=== PATIENT | female | born 1960 | race Caucasian/White ===

== ENCOUNTER 2017-04-17 10:44 | Emergency (ER) | payer BC ==
--- NOTE | 2017-04-17 11:47 | RAD ---
HISTORY: Left wrist pain and injury COMPARISONS: None VIEWS: 3, Frontal, lateral, and oblique views of the left wrist FINDINGS: BONE DENSITY: Normal. BONES: There is a comminuted fracture of the distal radial metaphysis with articular extension. There is minimal dorsal inflation. There is a minimally displaced fracture of the styloid process of the ulna. JOINTS: There is no arthropathy. ALIGNMENT: There is no dislocation. SOFT TISSUES: Unremarkable. OTHER FINDINGS: None. IMPRESSION: 1. COMMINUTED, ANGULATED FRACTURE OF THE DISTAL RADIAL METAPHYSIS. 2. FRACTURE OF THE STYLOID PROCESS OF THE ULNA.
[2017-04-17] MEDS ORDERED: Ketorolac INJ* 60 MG/2 ML VIAL IM ONE (13:32)
--- NOTE | 2017-04-17 14:21 | ED ---
Upper Extremity Pain - HPI Summary HPI Summary: 57 female presents with complaints of left wrist pain and injury that occurred just [employer]. Patient states she was helping her daughter move into dorm room and fell off bad landing on left wrist/arm. Patient had immediate pain and deformity. Did not hit head, no LOC and no other complaints/injuries at this time. Has not taken any medications. No PMHX. Does have osteopenia. Denies numbness/tingling. - History of Current Complaint Chief Complaint: EDExtremityUpper Stated Complaint: WRIST INJURY Time Seen by Provider: 04/17/17 11:10 Hx Obtained From: Patient Mechanism Of Injury: Fall From Height Of: - 4 feet ([employer] bed hieght) Onset/Duration: Started Hours Ago, Traumatic, Still Present Timing: Constant Severity Initially: Moderate Severity Currently: Moderate Pain Location: Wrist - left Character: Sharp, Aching Aggravating Factor(s): Movement Alleviating Factor(s): Rest Associated Signs & Symptoms: Positive: Swelling, Other - obvious deformity of left wrist Related History: Dominant Hand Right - Allergies/Home Medications Allergies/Adverse Reactions: Allergies Allergy/AdvReac Type Severity Reaction Status Date / Time No Known Allergies Allergy Verified 04/17/17 10:46 PMH/Surg Hx/FS Hx/Imm Hx Endocrine/Hematology History: Denies: Hx Diabetes Cardiovascular History: Denies: Hx Hypertension Respiratory History: Denies: Hx Asthma - Surgical History Surgery Procedure, Year, and Place: none - Immunization History Immunizations Up to Date: Yes Infectious Disease History: No Infectious Disease History: Denies: Traveled Outside the [place] in Last 30 Days - Family History Known Family History: Positive: None - Social History Alcohol Use: None Substance Use Type: Reports: None Smoking Status (MU): Never Smoked Tobacco Review of Systems Constitutional: Negative Cardiovascular: Negative Respiratory: Negative Gastrointestinal: Negative Positive: Arthralgia, Myalgia, Decreased ROM, Edema - left wrist Skin: Negative Neurological: Negative All Other Systems Reviewed And Are Negative: Yes Physical Exam Triage Information Reviewed: Yes Vital Signs On Initial Exam: Initial Vitals Temp Pulse Resp BP Pulse Ox 97.3 F 72 16 108/73 97 04/17/17 10:46 04/17/17 10:46 04/17/17 10:46 04/17/17 10:46 04/17/17 10:46 Vital Signs Reviewed: Yes Appearance: Positive: Well-Appearing, No Pain Distress, Well-Nourished Skin: Positive: Warm, Skin Color Reflects Adequate Perfusion, Dry. Negative: Cold, Numb, Cyanosis @, Diaphoretic, Pale, Erythema @ Head/Face: Positive: Normal Head/Face Inspection Eyes: Positive: Conjunctiva Clear ENT: Positive: Hearing grossly normal Neck: Positive: Supple, Nontender Respiratory/Lung Sounds: Positive: Clear to Auscultation, Breath Sounds Present. Negative: Rales, Rhonchi, Wheezes Cardiovascular: Positive: Normal, RRR, Pulses are Symmetrical in both Upper and Lower Extremities - 2+ radial pulses equal and present. Negative: Murmur, Rub Abdomen Description: Positive: Nontender Bowel Sounds: Positive: Present Musculoskeletal: Positive: Normal, Limited @ - left wrist, no ROM due to deformity and pain rest of MSK exam normal, does have ROM with left digits., Interruption @ - left wrist, Pain @ - left wrist on palpation diffuse, Edema Left - wrist. Negative: Duane Sign Left, Duane Sign Right, Edema Right Neurological: Positive: Normal, Sensory/Motor Intact - sensation intact, cap refill > 2seconds, Alert, Oriented to Person Place, Time, CN Intact II-III, Reflexes Intact, NV Bundle Intact Distally, Normal Gait Psychiatric: Positive: Affect/Mood Appropriate Procedures - Splinting Location: left forearm/wrist Hand-Made Type: plaster Splint: sugar-tong Pre-Proc Neuro Vasc Exam: normal Post-Proc Neuro Vasc Exam: normal, unchanged from pre-exam - Joint Reduction Joint Reduction Site: wrist (L) Specify Other Joint Reduced: left wrist completed by Dr Robert with my assistance I gave hematoma block Conscious Sedation: No Reduction Attempts: 1 Pre-Procedure NV Exam: Yes Post Joint Reduction Film: joint reduced Diagnostics - Vital Signs Vital Signs Temp Pulse Resp BP Pulse Ox 04/17/17 14:00 100.0 F 67 12 114/73 97 04/17/17 10:46 97.3 F 72 16 108/73 97 - Laboratory Lab Statement: Any lab studies that have been ordered have been reviewed, and results considered in the medical decision making process. - Radiology left wrist Xray Interpretation: Positive (See Comments) - 1. COMMINUTED, ANGULATED FRACTURE OF THE DISTAL RADIAL METAPHYSIS. 2. FRACTURE OF THE STYLOID PROCESS OF THE ULNA. Radiology Interpretation Completed By: Radiologist post reduction left wrist Xray Interpretation: Positive (See Comments) - PERSISTENT FRACTURES OF THE DISTAL RADIUS AND ULNA Radiology Interpretation Completed By: Radiologist Course/Dx - Course Course Of Treatment: x-ray and PE findings positive for left wrist fracture of radius and ulna. was reduced by Dr Robert and myself and splinted with no complication and minimal pain. Patient tolerated procedure well after administered hematoma block. given toradol for pain. given pain managment at home continue ibuprofen at home. follow up ortho at home (alivia). aware of worsening signs and symptoms including compartment syndrome and to seek medical attention immediatly if occur. RICE and rest. - Diagnoses Differential Diagnosis/HQI/PQRI: Positive: Contusion, Fracture (Closed), Hematoma, Strain, Sprain Provider Diagnoses: Wrist fracture, left - Physician Notifications Discussed Care of Patient With: Dr Robert Time Discussed With Above Provider: 14:15 Instructed by Provider To: MD Will See In ED Discharge - Discharge Plan Condition: Stable Disposition: HOME Prescriptions: HYDROcodone/ACETAMIN 5-325 MG* [Melvin 5-325 TAB*] 1 tab PO Q6H PRN #8 tab MDD 2 PRN Reason: Pain Patient Education Materials: Wrist Fracture in Adults (ED) Referrals: Non Staff,Doctor [Primary Care Provider] - Additional Instructions: Take ibuprofen for pain and inflammation. Rest, elevated and ice wrist. Do not get splint wet. Follow up with orthopedics for cast and further evaluation. If symptoms worsen or the splint becomes too tight as discussed please seek medical attention promptly.
[2017-04-17] MEDS ORDERED: Lidocaine 1% INJ* 10 MG/ML 30 ML SDV ONE (14:31)
--- NOTE | 2017-04-17 15:39 | RAD ---
HISTORY: Post reduction COMPARISONS: April 17, 2017 at 10:23 AM VIEWS: 3, Frontal, lateral, and oblique views of the left wrist performed in a cast which obscures some bone detail FINDINGS: BONE DENSITY: Normal. BONES: Again noted is a comminuted fracture of the distal radial metaphysis and a fracture of the styloid process of the ulna. There has been interval reduction of angulation. JOINTS: There is no arthropathy. ALIGNMENT: There is no dislocation. SOFT TISSUES: Unremarkable. OTHER FINDINGS: None. IMPRESSION: PERSISTENT FRACTURES OF THE DISTAL RADIUS AND ULNA
[2017-04-17 16:22] VITALS: BP 101/63
--- NOTE | 2017-04-17 21:31 | CONS ---
CONSULTATION NOTE: DATE OF CONSULT: 04/17/17 REASON FOR CONSULT: Left wrist fracture. HISTORY OF PRESENT ILLNESS: The patient is a 57-year-old woman, right hand dominant, from [place], [place], who was helping her daughter moving to a dorm at [employer], who fell on an outstretched left hand today, , with resultant significant pain and swelling about the left wrist. The patient presented to the [facility] Emergency Department with a deformed left wrist. X-rays were obtained, which demonstrated a comminuted displaced left distal radius fracture. I was consulted while in the operating room. I presented to the emergency department after my case to help in the reduction of the fracture at the emergency department staff's request. PAST MEDICAL HISTORY: None available. PAST SURGICAL HISTORY: MEDICATIONS: None. ALLERGIES: No known drug allergies. REVIEW OF SYSTEMS: No fever, sweats, chills. No other joint pain. No numbness or tingling, left upper extremity. No chest pain. No shortness of breath. No heart palpitations. PHYSICAL EXAM: Vital signs at 10:46 a.m. on 04/17/17 were: Temperature 97.3 degrees Fahrenheit, pulse 72, blood pressure 108/73, respirations 16, and pulse ox 97% on room air. No acute distress, alert and oriented x3, appropriate mood and affect, appropriate dress and hygiene, nonantalgic gait, well coordinated bilateral upper extremities. Left upper extremity revealed obvious dinner fork type deformity of the left wrist. The patient had some tenderness to palpation about the distal radius, although a hematoma block had already been performed by emergency department staff. There were some small poke holes in the skin where a needle had clearly gone through to deliver lidocaine anesthetic. Skin, otherwise intact. Mild swelling about the left wrist. No bruising. Neurovascularly intact distally. No tenderness to palpation and full strength about the left elbow. IMAGING: X-rays, three views of the left wrist were obtained. They show a left distal fracture, comminuted with multiple different fracture points. Unclear if it is intraarticular. There is some dorsal tilt of the distal fragment. There is fracture plane involvement of the DRUJ, distal radioulnar joint aspect of the radius. There is a displaced ulnar styloid fracture as well. Watch is in place. ASSESSMENT: 1. Left distal radius fracture, comminuted, displaced. 2. Left ulnar styloid fracture, displaced. PLAN: 1. At my request, ER staff had applied a hematoma block through the dorsal skin about the wrist prior to my arrival. A 5 to 10 cc of lidocaine were applied. At least 5 minutes had passed prior to my examining the patient. 2. PROCEDURE: Closed reduction maneuver of the distal radius was performed. A sugar tong splint, volar dorsal was then applied with a nice 3-point mold. Verbal consent, sterile technique, tolerated well. 3. We obtained post reduction radiographs. These were three views of the left wrist. These showed improvement of fracture alignment. These show a volar tilt of 0 degrees, essentially neutral perhaps 1 degree of volar tilt of the distal radius. Radial inclination is measured to be 18 degrees. Radial height is 10.3 mm. 4. The patient plans to leave to return to [place] tomorrow. I recommended that she follow up with a general orthopedist or a hand orthopedist next week, early in the week, so, 3 to 4 days from now, for x-ray examination and discussion of operative versus nonoperative management. 5. The patient had a ring in place over the ring finger. I applied some lubricant and removed that ring and gave it to the patient. 6. The patient will be leaving our area tomorrow morning, but I am happy to provide assistance by telephone if she calls my office. The patient is to remain in the splint until a followup appointment with an orthopedic surgeon. [id number]/CPS #: [id number] MTDD
== END 2017-04-17 16:22 | disposition home or self-care (01) ==
LOC: ED 10:44
DX: S62.102A Fracture of unspecified carpal bone, left wrist, initial encounter for closed fracture (principal); W19.XXXA Unspecified fall, initial encounter; Y93.9 Activity, unspecified; Y92.9 Unspecified place or not applicable
CPT/HCPCS: 25660; 96372; 99283; J1885; J2001